=== PATIENT | male | born 1965 | race Two or more races ===

== ENCOUNTER 2025-01-24 17:38 | Inpatient (IN) | payer MEDICAID, OTHER ==
[~2025-01-24] VITALS: Ht 175.3 cm; Wt 97.5 kg
--- NOTE | 2025-01-24 17:51 | ECG ---
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
[2025-01-24] MEDS: LABETALOL HCL 20 MG/4 ML VL IV ONE ×2 (18:00→19:55)
[2025-01-24] MEDS: NITROGLYCERIN 0.4 MG SL TAB SL ONE (18:00)
--- NOTE | 2025-01-24 18:03 | ED.PDOC ---
HPI Comments This is a 59 year old male presenting to the ED with chief complaint of chest pain. Patient reports that while watching TV last night at 8pm, he begun to experience sudden onset left sided chest pain with associated radiation to his left arm, SOB, and bilateral calf pain. Patient relays that he took Ibuprofen and it resolved, however, it returned today, but is calf pain has remained resolved. Patient notes he quit smoking 4 months ago. Patient denies any syncope, fever, cough, dizziness, headache, numbness, or weakness. Chief Complaint: Chest Pain Time Seen by MD: 17:59 Reviewed Notes: Nurses Notes, Medications, Allergies Allergies: Coded Allergies: NO KNOWN ALLERGIES (Unverified , 01/24/25) Information Source: Patient Mode of Arrival: Ambulatory Severity: Moderate Timing: Hours Duration: Since onset Prehospital treatment: None Location: Chest (L) Radiation: Arm (L) Quality: Sharp Onset: At Rest Cardiac Risk Factors: Smoker PE Risk Factors: None History of: None Associated Signs and Symptoms: SOB Past Medical History PAST MEDICAL HISTORY: Denies Surgical History: Denies all surgeries Family History Family History: Reviewed,noncontributory to illness Social History Smoker: Quit Less Than 1 Year, Cigarettes Alcohol: Denies ETOH Use Drugs: Denies Drug Use Lives In: Home Constitutional: denies: chills, diaphoresis, fatigue, fever, malaise, sweats, weakness, others EENTM: denies: blurred vision, double vision, ear bleeding, ear discharge, ear drainage, ear pain, ear ringing, eye pain, eye redness, hearing loss, mouth pain, mouth swelling, nasal discharge, nose bleeding, nose congestion, nose pain, photophobia, tearing, throat pain, throat swelling, voice changes, others Respiratory: reports: shortness of breath; denies: cough, hemoptysis, orthopnea, SOB at rest, SOB with excertion, stridor, wheezing, others Cardiovascular: reports: chest pain, left arm pain; denies: dizzy spells, diaphoresis, Dyspnea on exertion, edema, irregular heart beat, lightheadedness, palpitations, PND, syncope, others Gastrointestinal: denies: abdomen distended, abdominal pain, blood streaked bowels, constipated, diarrhea, dysphagia, difficulty swallowing, hematemesis, melena, nausea, poor appetite, poor fluid intake, rectal bleeding, rectal pain, vomiting, others Genitourinary: denies: burning, dysuria, flank pain, frequency, hematuria, incontinence, penile discharge, penile sore, pain, testicle pain, testicle swelling, urgency, others Neurological: denies: dizziness, fainting, headache, left sided numbness, left sided weakness, numbness, paresthesia, pre-existing deficit, right sided numbness, right sided weakness, seizure, speech problems, tingling, tremors, weakness, others Musculoskeletal: reports: others (Bilateral calf pain); denies: back pain, gout, joint pain, joint swelling, muscle pain, muscle stiffness, neck pain Integumetry: denies: bruises, change in color, change in hair/nails, dryness, laceration, lesions, lumps, rash, wounds, others Allergic/Immunocompromised: denies: Difficulty Healing, Frequent Infections, Hives, Itching, others Hematologic/Lymphatic: denies: anemia, blood clots, easy bleeding, easy bruising, swollen glands, others Endocrine: denies: excessive hunger, excessive sweating, excessive thirst, excessive urination, flushing, intolerance to cold, intolerance to heat, unexplained weight gain, unexplained weight loss, others Psychiatric: denies: anxiety, bipolar disorder, depression, hopeless, panic disorder, schizophrenia, sleepless, suicidal, others All Other Systems: Reviewed and Negative Physical Exam General Appearance: No Apparent Distress, Normal HEENT: Normal ENT Inspection, Pharynx Normal, TMs Normal Neck: Full Range of Motion, Non-Tender, Normal, Normal Inspection Respiratory: Chest Non-Tender, Lungs Clear, No Accessory Muscle Use, No Respiratory Distress, Normal Breath Sounds Cardiovascular: No Edema, No JVD, No Murmur, No Gallop, Normal Peripheral Pulses, Tachycardia Breast Exam: Deferred Gastrointestinal: No Organomegaly, Non Tender, No Pulsatile Mass, Normal Bowel Sounds, Soft Genitalia: Deferred Pelvic: Deferred Rectal: Deferred Extremities: No calf tenderness, Normal capillary refill, Normal inspection, Normal range of motion, Non-tender, No pedal edema Musculoskeletal : Apperance: Normal Neurologic: Alert, active 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 Was a procedure done?: No CP Differential Dx Differential Diagnosis: A-fib, A-Flutter, Angina, Anxiety / Panic Attack, Atrial Dysrhythmia, Electrolyte Disorder, Heart Failure, Hyperthyroidism, Hyperventilation, Hypoxia, MAT, LA, PAC's, PSVT, Pulmonary Embolus, PVC's, Sinus Tachycardia, Torsades De Pointes, Ventricular Dysrhythmia, V-Tach, WPW Differential Diagnosis: Angina, Aortic dissection, Chest Wall Pain, Cholelithiasis, Costochondritis, Esophageal reflux/spasm, Gastritis, Myocardial Infarction, Pericarditis, Pneumonia, Pneumothorax, Pulmonary Embolus X-Ray, Labs, Meds, VS Vital Signs Date Time Temp Pulse Resp B/P (MAP) Pulse Ox O2 Delivery O2 Flow Rate FiO2 01/24/25 17:47 129 01/24/25 17:45 99.9 118 20 148/91 (110) 97 99.9 Lab Test 01/24/25 17:49 Range/Units White Blood Count 11.5 H 4.4-10.8 10^3/uL Red Blood Count 5.26 4.5-5.90 10^6/uL Hemoglobin 16.4 13.5-17.5 g/dL Hematocrit 47.3 41.0-53.0 % Mean Corpuscular Volume 90.0 80.0-100.0 fL Mean Corpuscular Hemoglobin 31.3 28.0-32.0 pg Mean Corpuscular Hemoglobin Concent 34.7 32.0-36.0 g/dL Red Cell Distribution Width 12.8 11.8-14.3 % Platelet Count 211 140-450 10^3/uL Mean Platelet Volume 8.0 6.9-10.8 fL Neutrophils (%) (Auto) 88.3 H 37.0-80.0 % Lymphocytes (%) (Auto) 7.4 L 10.0-50.0 % Monocytes (%) (Auto) 3.8 0.0-12.0 % Eosinophils (%) (Auto) 0.0 0.0-7.0 % Basophils (%) (Auto) 0.5 0.0-2.0 % Neutrophils # (Auto) 10.1 H 1.6-8.6 10 ^3/uL Lymphocytes # (Auto) 0.8 0.4-5.4 10 ^3/uL Monocytes # (Auto) 0.4 0-1.3 10 ^3/uL Eosinophils # (Auto) 0 0-0.8 10 ^3/uL Basophils # (Auto) 0.1 0-0.2 10 ^3/uL Nucleated Red Blood Cells 0.0 % D-Dimer, Quantitative 0.45 0.0-0.49 mg/L FEU Sodium Level 133 L 136-145 mmol/L Potassium Level 4.0 3.5-5.1 mmol/L Chloride Level 99 98-107 mmol/L Carbon Dioxide Level 21 20-31 mmol/L Anion Gap 13 5-15 Blood Urea Nitrogen 11 9-23 mg/dL Creatinine 1.01 0.700-1.30 mg/dL Glomerular Filtration Rate Calc 85 >90 mL/min BUN/Creatinine Ratio 10.9 10.0-20.0 Serum Glucose 191 H 74-106 mg/dL Calcium Level 9.9 8.7-10.4 mg/dL Troponin I High Sensitivity 4 </=54 ng/L Chest XR: FINDINGS: Lines and Tubes: None Lungs: Reticular nodular opacities in the right middle lung. Pleura: No effusion. No pneumothorax. Cardiomediastinal contours: Unremarkable Bones: No acute osseous abnormality. IMPRESSION: Reticular nodular opacities in the right middle lung for which atypical infection can not be excluded. Images Reviewed?: Images reviewed and evaluated by me Time of 1ST Reevaluation: 18:59 Reevaluation 1ST: Unchanged Time of 2ND Reevaluation: 19:03 Reevaluation 2ND: Resolved Patient Education/Counseling: Diagnosis, Treatment, Prognosis, Need For Follow Up Family Education/Counseling: No Family Present Comments pt was tachycardic, with chest pain. his HR slowed to 104 and his chest pain resolved. his DD is negative. cxr suggests possible infiltrate, i will cover his with antibiotic, but his chest pain brought on by tachycardia is concerning for cardiac ischemia. he will be admitted for further workups and treatments Additional Information Reviewed patient's previous visit(s): None The following tests were ordered, and results were reviewed by me: CBC, BMP, UA, Troponin, D-Dimer, Chest XR, EKG Additional information was gathered from interviewing the following independent historian: None I reviewed and agreed with the following test results read by other provider: Chest XR I discussed treatments and results with medical personnel and: Patient Comprehensive systems review obtained and negative except for what is stated in the HPI. SEPSIS Sepsis Screen Physician Orders Urinalysis (01/24/25 17:49) Electrocardigram (01/24/25 18:49) Electrocardigram (01/24/25 20:49) Chest Portable (01/24/25 17:55) Troponin-I Hs (01/24/25 18:55) Troponin-I Hs (01/24/25 20:55) Vital Signs Date Time Temp Pulse Resp B/P (MAP) Pulse Ox O2 Delivery O2 Flow Rate FiO2 01/24/25 17:47 129 01/24/25 17:45 99.9 118 20 148/91 (110) 97 99.9 Laboratory Tests Test 01/24/25 17:49 White Blood Count 11.5 10^3/uL (4.4-10.8) H Departure 1 Departure Time of Disposition: 19:02 Impression: Primary Impression: Unstable angina Additional Impressions: Tachycardia Pneumonia Qualified Codes: J18.9 - Pneumonia, unspecified organism Disposition: ADMITTED INPATIENT Admit to: Tele Condition: Serious Discharged With: Self Critical Care Note Critical Care Time?: Yes (55 min-critical care time only) Critical care comment: due to concerns for patient's condition deteriorating, the care required my highest level of attention and readiness to intervene. i assessed the patient's condition, ordered the proper tests and treatments, reassessed for response and reviewed the results. i communicated with medical personnel and formulated a plan of care. total critical care time does not include any procedures Stability Stability form required: No Heart Score Heart Score: Heart Score Response (Comments) Value History Highly Suspicious 2 EKG Repolarization Disturb 1 Age 45-64 1 Risk Factors 1 or 2 risk factors 1 Troponin Normal limit 0 Total 5 I personally scribed for MITCH BUSH MD ([email or web address]) on 01/24/25 at 18:03. Electronically submitted by Titi Frausto ([email or web address]). I personally scribed for MITCH BUSH MD ([email or web address]) on 01/24/25 at 18:44. Electronically submitted by Titi Frausto ([email or web address]). MITCH BUSH MD Jan 24, 2025 18:03
[2025-01-24 18:09] LABS: Hematocrit 47.3 % (41.0-53.0); Hemoglobin 16.4 g/dL (13.5-17.5); Mean Corpuscular Hemoglobin 31.3 pg (28.0-32.0); Mean Corpuscular Volume 90.0 fL (80.0-100.0); Nucleated Red Blood Cells % 0.0 %
[2025-01-24 18:13] LABS: Chloride 99 mmol/L (98-107); Potassium 4.0 mmol/L (3.5-5.1)
[2025-01-24 18:15] LABS: Anion Gap 13 (5-15); Calcium 9.9 mg/dL (8.7-10.4); Carbon Dioxide 21 mmol/L (20-31)
[2025-01-24 18:16] LABS: Sodium 133 mmol/L (136-145)
[2025-01-24 18:20] LABS: BUN/Creatinine Ratio 10.9 (10.0-20.0); Blood Urea Nitrogen 11 mg/dL (9-23)
[2025-01-24 18:26] LABS: Glucose 191 mg/dL (74-106)
--- NOTE | 2025-01-24 18:37 | DVH ---
EXAM: XY CHEST PORTABLE Indication: cp Technique: Single frontal view of the chest was obtained Comparison: None FINDINGS: Lines and Tubes: None Lungs: Reticular nodular opacities in the right middle lung. Pleura: No effusion. No pneumothorax. Cardiomediastinal contours: Unremarkable Bones: No acute osseous abnormality. IMPRESSION: Reticular nodular opacities in the right middle lung for which atypical infection can not be excluded .
--- NOTE | 2025-01-24 19:10 | ECG ---
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
[2025-01-24] MEDS: cefTRIAXone 1GM/50ML D5W 50 ML IV ONE (19:25)
[2025-01-24] MEDS: AZITHROMYCIN 500MG/ 250ML 250 ML IV ONE (19:58)
[2025-01-24 20:50] LABS: Urine Amorphous Crystal FEW /hpf (None Seen); Urine Protein, UAD TRACE (Negative)
--- NOTE | 2025-01-24 21:55 | DVHHP2 ---
History of Present Illness History of Present Illness Patient is 59 years old male with past medical history of GERD came with a complaint of chest pain. As per patient he had chest started yesterday around 8:00 p.m. when he was watching TV, sudden onset, left-sided, radiating to the left arm, decreased ibuprofen, no aggravating factor. Chest pain was associated with shortness of breath. On further inquiry patient also reported left calf pain which lasted about 30 minutes yesterday. Patient also reported abdominal pain, sudden onset started 1 hour before, crampy in nature, no aggravating or relieving factor. Patient denied any fever, dysuria, palpitation, acute joint pain or swelling, eating outside food. Initial lab workup revealed leukocytosis with WBC 11.5, D-dimer 0.45. sodium 133, blood sugar 91, urinalysis negative for UTI. EKG sinus tachycardia. UDS negative, urinalysis negative for UTI. Chest x-ray- Reticular nodular opacities in the right middle lung for which atypical infection can not be excluded. CT scan of the abdomen and pelvis revealed-Small ground-glass nodule in the right upper lobe measuring 1 cm. This could be infectious or inflammatory. Small hiatal hernia. No free intraperitoneal air or fluid collection. No bowel obstruction. Circumferential wall thickening of a long segment of ascending and transverse colon which could be infectious or inflammatory colitis. Mild hepatomegaly with mild hepatic steatosis. Past Medical History GERD Past Surgical History Left knee surgery Family History Mom and dad both had hypertension Past Social History Ex-smoker, with 4 month before, 20 pack-year Review of Systems Allergies: Coded Allergies: NO KNOWN ALLERGIES (Unverified , 01/24/25) Medications Current Medications Medications Dose Ordered Sig/Chris Route Start Time Stop Time Status Last Admin Dose Admin Sodium Chloride 1,000 ml @ 120 mls/hr [id number] IV 01/24/25 21:45 Exam Vital Signs Vital Signs Date Time Temp Pulse Resp B/P (MAP) Pulse Ox O2 Delivery O2 Flow Rate FiO2 01/24/25 21:00 102 138/91 01/24/25 20:00 98.5 16 93 98.5 01/24/25 19:30 Nasal Cannula* 2 28 Exam General examination- ray, alert, oriented HEENT- PEERLA, no acute nasal discharge Cardiovascular- S1-S2 audible, rate and rhythm regular, no murmur Respiratory- CTAB, no wheeze or rhonchi Gastrointestinal-abdominal tenderness+, bowel sound+. Nondistended Musculoskeletal-no acute joint swelling or tenderness or redness Lower extremity- no leg edema Neurological- cranial nerves intact, no acute dysarthria or dysphagia Psychiatry- denies depression or SI or HI Skin- no acute rash or purpura Labs/Xrays Labs Test 01/24/25 20:15 01/24/25 19:49 01/24/25 19:01 01/24/25 17:49 Range/Units Urine Color Colorless Yellow Urine Clarity Ex.turbid Clear Urine pH 5.5 5.0-9.0 Urine Specific [place] 1.027 1.001-1.035 Urine Protein Trace H Negative Urine Ketones Negative Negative Urine Blood Negative Negative /uL Urine Nitrite Negative Negative Urine Bilirubin Negative Negative Urine Urobilinogen Normal Negative mg/dL Urine Leukocyte Esterase Negative Negative /uL Urine RBC 2 0 - 3 /hpf Urine Microscopic WBC 1 0-3 /HPF Urine Squamous Epithelial Cells None seen <5 /hpf Urine Amorphous Crystals Few None Seen /hpf Urine Bacteria None seen None Seen /hpf Urine Mucus Few None Seen Urine Glucose 1+ H Normal mg/dL Troponin I High Sensitivity 5 </=54 ng/L White Blood Count 11.5 H 4.4-10.8 10^3/uL Red Blood Count 5.26 4.5-5.90 10^6/uL Hemoglobin 16.4 13.5-17.5 g/dL Hematocrit 47.3 41.0-53.0 % Mean Corpuscular Volume 90.0 80.0-100.0 fL Mean Corpuscular Hemoglobin 31.3 28.0-32.0 pg Mean Corpuscular Hemoglobin Concent 34.7 32.0-36.0 g/dL Red Cell Distribution Width 12.8 11.8-14.3 % Platelet Count 211 140-450 10^3/uL Mean Platelet Volume 8.0 6.9-10.8 fL Neutrophils (%) (Auto) 88.3 H 37.0-80.0 % Lymphocytes (%) (Auto) 7.4 L 10.0-50.0 % Monocytes (%) (Auto) 3.8 0.0-12.0 % Eosinophils (%) (Auto) 0.0 0.0-7.0 % Basophils (%) (Auto) 0.5 0.0-2.0 % Neutrophils # (Auto) 10.1 H 1.6-8.6 10 ^3/uL Lymphocytes # (Auto) 0.8 0.4-5.4 10 ^3/uL Monocytes # (Auto) 0.4 0-1.3 10 ^3/uL Eosinophils # (Auto) 0 0-0.8 10 ^3/uL Basophils # (Auto) 0.1 0-0.2 10 ^3/uL Nucleated Red Blood Cells 0.0 % D-Dimer, Quantitative 0.45 0.0-0.49 mg/L FEU Sodium Level 133 L 136-145 mmol/L Potassium Level 4.0 3.5-5.1 mmol/L Chloride Level 99 98-107 mmol/L Carbon Dioxide Level 21 20-31 mmol/L Anion Gap 13 5-15 Blood Urea Nitrogen 11 9-23 mg/dL Creatinine 1.01 0.700-1.30 mg/dL Glomerular Filtration Rate Calc 85 >90 mL/min BUN/Creatinine Ratio 10.9 10.0-20.0 Serum Glucose 191 H 74-106 mg/dL Calcium Level 9.9 8.7-10.4 mg/dL Assessment/Plan Assessment/Plan Assessment and plan # Acute chest pain, out acute coronary syndrome -troponin I negative, EKG sinus tachycardia -edema with a normal limit -pending echo 2D # Acute colitis -CT abdomen and pelvis revealed-Circumferential wall thickening of a long segment of ascending and transverse colon which could be infectious or inflammatory colitis -continue ceftriaxone metronidazole as prescribed -continue normal saline iv 120 mL/hour # SIRS -continue IV fluid as prescribed Continue current antibiotic # GERD Continue pantoprazole 40 mg IV daily # Right lung nodule -CT scan revealed-Small ground-glass nodule in the right upper lobe measuring 1 cm. -follow up outpatient with the primary care physician for further evaluation and care # Hiatus hernia # hepatomegaly with a hepatic steatosis Goals of care, Code status ; discussed with >15 minutes PUD prophylaxis: Pantoprazole DVT prophylaxis: Lovenox Plan discussed with Dr. Au , nursing staff, Total time spent on patient evaluation, chart review, assessment and plan, discussion discussion >35 minutes Plan discussed with: Patient, Other (RN) My Orders Orders - HOOD MORA RESIDENT Procedure Category Date Status Time Hepatic Panel LAB 01/24/25 In Process 21:33 Lipase LAB 01/24/25 In Process 21:33 Magnesium LAB 01/24/25 In Process 21:33 Thyroid Stimulating LAB 01/24/25 In Process Hormone 21:33 Blood Alcohol LAB 01/24/25 In Process 21:34 Chst Ab Pel Wo Con-No CT 01/24/25 Taken Iv/Oral 21:29 Admit ADMIT 01/24/25 Transmitted 21:35 Code Status CODE 01/24/25 Transmitted 21:35 Sodium Chloride 0.9% PHA 01/24/25 In Process 21:45 Complete Blood Count LAB 01/25/25 Verified 04:00 Comprehensive LAB 01/25/25 Verified Metabolic Panel 04:00 Npo (Nothing By DIET 01/25/25 Transmitted Mouth) Diet Breakfast Echo 2d Mode Cardiac US 01/24/25 Logged DOP 21:35 Oxygen By Nasal RT 01/24/25 Transmitted Cannula 21:35 Notify Of Changes MARY ANN 01/24/25 In Process From Base 21:35 Bed And Breakfast Innkeeper For MARY ANN 01/24/25 In Process 24 Hours 21:35 Date of Service: Jan 24, 2025 Billing Provider: SAAD AU MD Common Visit Codes: 40098-[id number] INP/OBS CARE (HIGH) Secondary Visit Codes: 53812-[id number] CARE PLAN 30 MINUTES HOOD MORA RESIDENT Jan 24, 2025 21:55
[2025-01-24 21:58] LABS: Alanine Aminotransferase 39 U/L (7-40); Albumin 4.6 g/dL (3.2-4.8); Alkaline Phosphatase 74 U/L (46-116); Bilirubin, Total 0.5 mg/dL (0.2-1.0); Magnesium 1.7 mg/dL (1.6-2.6); Total Protein 7.4 g/dL (5.7-8.2)
[2025-01-24] MEDS: PANTOPRAZOLE 40 MG/10 ML VIAL INJ IV ONE (22:03)
[2025-01-24] MEDS: SODIUM CHLORIDE 0.9% 1,000 ML IV SCH (22:04)
[2025-01-24 22:05] LABS: Amphetamine Screen, Urine Neg (NEGATIVE); Barbiturate Scree,Urine Neg (NEGATIVE); Benzodiazephine Screen, Urine Neg (NEGATIVE); Cannabinoid Screen, Urine Neg (NEGATIVE); Cocaine Screen, Urine Neg (NEGATIVE); Opiate Scree,Urine Neg (NEGATIVE); Phencyclidine Screen, Urine Neg (NEGATIVE)
[2025-01-24 22:05] LABS: Bilirubin, Direct < 0.1 mg/dL (<0.3)
[2025-01-24 22:27] LABS: Lipase 40 U/L (12-53)
[2025-01-24] MEDS ORDERED: ONDANSETRON HCL 4 MG/2 ML VIAL IV PRN (22:30)
[2025-01-24] MEDS: ONDANSETRON HCL 4 MG/2 ML VIAL IM ONE (22:54)
[2025-01-24 23:06] VITALS: BP 124/83; PULSE 103; RESP 16; RESP 18; TEMP 100.6; O2SAT 95
[2025-01-24 23:30] VITALS: BP 124/83; PULSE 104; RESP 19; TEMP 100.6; O2SAT 93
[2025-01-25] VITALS (8 sets, daily range): BP systolic 125–150; BP diastolic 79–93; PULSE 79–101; RESP 18–19; TEMP 97.5–101.3; O2SAT 94–98
--- NOTE | 2025-01-25 | DVH ---
CLINICAL HISTORY: perforation of gut, SOB TECHNIQUE: CT of the chest, abdomen and pelvis was performed without IV contrast. This exam was perfo rmed according to our departmental dose optimization program. Up-to-date CT equipment and radiation d ose reduction techniques are utilized as appropriate. CTDI: 18.5 DLP: 1381.82 COMPARISON: None FINDINGS: CHEST FINDINGS: Lower Neck: Unremarkable Axilla, Mediastinum and Carol: Small hiatal hernia. There is no mediastinal or axillary lymphadenopath y. Limited evaluation of the carol in the absence of intravenous contrast. Heart and Great Vessels: Normal-sized heart without pericardial effusion. Moderate calcification in t he left anterior descending coronary artery. The central pulmonary arteries normal caliber. Airway, Lungs and Pleura: Trachea and central airways are patent. Linear bibasilar scarring or atelec tasis. Small ground-glass nodule in the right upper lobe measuring 9 mm on series 3, image 19. Chest Wall and Osseous Structures: Mild multilevel thoracic spondylosis. No destructive osseous lesio n. Abdomen and Pelvis Findings: Liver and Biliary system: Mild hepatomegaly measuring 20 cm craniocaudal. There is mild hepatic stea tosis. Otherwise unremarkable. Spleen: Unremarkable. Adrenal Glands and Kidneys: Unremarkable. Pancreas and Retroperitoneum: Unremarkable. Aorta and Major Vessels: Aortoiliac vessels are normal in caliber containing mild calcified atheroscl erotic plaque. Bowel, Mesentery and Peritoneal space: Small and large bowel loops are normal in caliber. Normal appe ndix. There is no free air or fluid collection. There is mild circumferential wall thickening of a lo ng segment of ascending and transverse colon. Pelvis: Dystrophic calcifications in the prostate gland. Urinary bladder is minimally distended. The re is no pelvic lymphadenopathy. Abdominal wall and Osseous Structures: Small fat containing bilateral inguinal hernias. Multilevel francisco mbar spondylosis. No destructive osseous lesion. IMPRESSION: Chest: Small ground-glass nodule in the right upper lobe measuring 1 cm. This could be infectious or inflamm atory. If clinically indicated, follow-up CT chest could be in 6-12 months to re-evaluate this findin g if there are risk factors for pulmonary malignancy. Moderate calcified plaque in the left anterior descending coronary artery. Small hiatal hernia. Abdomen/pelvis: No free intraperitoneal air or fluid collection. No bowel obstruction. Circumferential wall thickening of a long segment of ascending and transverse colon which could be in fectious or inflammatory colitis. Mild hepatomegaly with mild hepatic steatosis.
[2025-01-25] MEDS: cefTRIAXone 1GM/50ML D5W 50 ML IV ONE (00:38)
[2025-01-25] MEDS: ENOXAPARIN SOD 40 MG/0.4 ML SYRINGE SC ONE (00:39)
[2025-01-25 07:35] LABS: Hematocrit 44.2 % (41.0-53.0); Hemoglobin 15.3 g/dL (13.5-17.5); Mean Corpuscular Hemoglobin 31.4 pg (28.0-32.0); Mean Corpuscular Volume 90.5 fL (80.0-100.0); Nucleated Red Blood Cells % 0.0 %
[2025-01-25 07:51] LABS: Alanine Aminotransferase 31 U/L (7-40); Albumin 4.1 g/dL (3.2-4.8); Alkaline Phosphatase 64 U/L (46-116); Anion Gap 14 (5-15); BUN/Creatinine Ratio 9.2 (10.0-20.0); Blood Urea Nitrogen 10 mg/dL (9-23); Calcium 9.5 mg/dL (8.7-10.4); Carbon Dioxide 21 mmol/L (20-31); Chloride 99 mmol/L (98-107); Total Protein 6.8 g/dL (5.7-8.2)
[2025-01-25 07:52] LABS: Bilirubin, Total 0.5 mg/dL (0.2-1.0); Glucose 145 mg/dL (74-106); Potassium 3.5 mmol/L (3.5-5.1); Sodium 134 mmol/L (136-145)
[2025-01-25] MEDS ORDERED: FAMOTIDINE (10MG/ML) 2ML VL IV SCH (10:00)
[2025-01-25] MEDS: PANTOPRAZOLE 40 MG/10 ML VIAL INJ IV SCH (10:19)
[2025-01-25] MEDS: ACETAMINOPHEN 325 MG TAB PO PRN (10:20)
--- NOTE | 2025-01-25 14:44 | DVHINCON2 ---
Date Seen: Jan 25, 2025 Referring Physician MD Marquez Reason for Consultation Chest pain History of Present Illness This is a 59-year-old male patient who presents to the emergency room with chief complaint of chest pain for two days prior to emergency room arrival. The patient describes the pain as unprovoked, intermittent, "sore" in nature, left- sided with radiation down his left arm and down to his left calf. He denies any associated symptoms. He does report aggravation of chest pain with deep inhalation. Initial twelve lead electrocardiogram reveals sinus tachycardia with Q-waves seen in inferior leads. Troponin levels have been negative. Significant past medical history includes tobacco use, alcohol use, and obesity. The patient also reports having a stress test done in April 2024 which was deemed to be normal. He reports annual stress tests for work compliance. 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 Past Medical History Past medical history reviewed. No other significant than mentioned above. Past Surgical History Denies any previous surgeries Family History: Diabetes mellitus G8 MOTHER G8 FATHER Family History Family history reviewed. Social History Patient admits to drinking approximately three beers per day Patient has a 10 pack-year history, quit smoking approximately four months ago Denies any illicit drug use Allergies: Coded Allergies: NO KNOWN ALLERGIES (Unverified , 01/24/25) Home Meds Denies taking any prescribed medications Current Medications Current Medications Medications (Trade) Dose Ordered Sig/Chris Route PRN Reason Start Time Stop Time Status Last Admin Sodium Chloride 1,000 ml @ 120 mls/hr Q8H20M IV 01/24/25 21:45 01/25/25 13:14 Ondansetron HCl (Zofran) 4 mg Q6HPRN PRN IV NAUSEA / VOMITING 01/24/25 22:30 Ceftriaxone Sodium 50 ml @ 100 mls/hr DAILY@09 IV 01/26/25 09:00 Metronidazole 100 ml @ 100 mls/hr Q8HR IV 01/25/25 06:00 01/25/25 13:21 Enoxaparin Sodium (Lovenox) 40 mg DAILY SC 01/26/25 10:00 Famotidine (Pepcid Injection) 20 mg Q12HR IV 01/25/25 10:00 01/25/25 08:07 DC Pantoprazole Sodium (Protonix) 40 mg DAILY IV 01/25/25 10:00 01/25/25 10:19 Acetaminophen (Tylenol Tablet) 650 mg Q4HP PRN PO PAIN SCALE 1-3 OR TEMP>100.4 01/25/25 09:15 01/25/25 10:20 Review of Systems Constitutional: No symptom reported Ears, Nose, & Throat: No symptom reported Eyes: No symptom reported Neurological: No symptoms reported Pulmonary/Respiratory: No symptoms reported Cardiovascular: Chest pain Gastrointestinal: No symptom reported Genitourinary: No symptom reported Musculoskeletal: Left calf pain Skin: No symptom reported Psychiatric: No symptom reported Endocrine: No symptom reported Hematologic/Lymphatic: No symptom reported Vital Signs Vital Signs Date Time Temp Pulse Resp B/P (MAP) Pulse Ox O2 Delivery O2 Flow Rate FiO2 01/25/25 13:14 97.4 01/25/25 09:00 95 18 144/93 (110) 96 01/25/25 08:00 Room Air* 0 21 Physical Exam General Appearance: Cooperative. Well-developed. Well-nourished. No acute distress. Pulmonary/Respiratory: Diminished bilateral lower lobes. Cardiovascular/Chest: Regular rate and rhythm. Peripheral Pulses: 2+ Radial (R). 2+ Radial (L). 2+ Pedal (R). 2+ Pedal (L) Abdominal Exam: Normal bowel sounds. Ankle Exam: Negative ankle edema Lower extremities: Negative lower extremity edema Neuro/Mental Status: A/OX4, coherent. Thoughts/Psych: Normal thought pattern. Appropriate mood and affect. Good judgment and insight. Appearance: No acute distress. Skin Exam: Normal inspection. Normal color. Warm and dry. Labs/Diagnostic Data Labs Test 01/25/25 06:16 01/24/25 20:15 01/24/25 19:49 01/24/25 19:01 Range/Units White Blood Count 9.9 4.4-10.8 10^3/uL Red Blood Count 4.88 4.5-5.90 10^6/uL Hemoglobin 15.3 13.5-17.5 g/dL Hematocrit 44.2 41.0-53.0 % Mean Corpuscular Volume 90.5 80.0-100.0 fL Mean Corpuscular Hemoglobin 31.4 28.0-32.0 pg Mean Corpuscular Hemoglobin Concent 34.7 32.0-36.0 g/dL Red Cell Distribution Width 12.9 11.8-14.3 % Platelet Count 187 140-450 10^3/uL Mean Platelet Volume 8.4 6.9-10.8 fL Neutrophils (%) (Auto) 86.6 H 37.0-80.0 % Lymphocytes (%) (Auto) 8.8 L 10.0-50.0 % Monocytes (%) (Auto) 4.1 0.0-12.0 % Eosinophils (%) (Auto) 0.0 0.0-7.0 % Basophils (%) (Auto) 0.5 0.0-2.0 % Neutrophils # (Auto) 8.6 1.6-8.6 10 ^3/uL Lymphocytes # (Auto) 0.9 0.4-5.4 10 ^3/uL Monocytes # (Auto) 0.4 0-1.3 10 ^3/uL Eosinophils # (Auto) 0 0-0.8 10 ^3/uL Basophils # (Auto) 0 0-0.2 10 ^3/uL Nucleated Red Blood Cells 0.0 % Sodium Level 134 L 136-145 mmol/L Potassium Level 3.5 3.5-5.1 mmol/L Chloride Level 99 98-107 mmol/L Carbon Dioxide Level 21 20-31 mmol/L Anion Gap 14 5-15 Blood Urea Nitrogen 10 9-23 mg/dL Creatinine 1.09 0.700-1.30 mg/dL Glomerular Filtration Rate Calc 78 >90 mL/min BUN/Creatinine Ratio 9.2 L 10.0-20.0 Serum Glucose 145 H 74-106 mg/dL Hemoglobin A1c 7.3 H <5.7 % A1C Calcium Level 9.5 8.7-10.4 mg/dL Total Bilirubin 0.5 0.2-1.0 mg/dL Aspartate Amino Transferase (AST) 24 13-40 U/L Alanine Aminotransferase (ALT) 31 7-40 U/L Alkaline Phosphatase 64 46-116 U/L B-Type Natriuretic Peptide 30.26 0-100 pg/mL Total Protein 6.8 5.7-8.2 g/dL Albumin 4.1 3.2-4.8 g/dL Vitamin B12 Level 235 211-911 pg/mL Vitamin D 25-Hydroxy 19.4 L 30.0-100 ng/mL Urine Color Colorless Yellow Urine Clarity Ex.turbid Clear Urine pH 5.5 5.0-9.0 Urine Specific [place] 1.027 1.001-1.035 Urine Protein Trace H Negative Urine Ketones Negative Negative Urine Blood Negative Negative /uL Urine Nitrite Negative Negative Urine Bilirubin Negative Negative Urine Urobilinogen Normal Negative mg/dL Urine Leukocyte Esterase Negative Negative /uL Urine RBC 2 0 - 3 /hpf Urine Microscopic WBC 1 0-3 /HPF Urine Squamous Epithelial Cells None seen <5 /hpf Urine Amorphous Crystals Few None Seen /hpf Urine Bacteria None seen None Seen /hpf Urine Mucus Few None Seen Urine Glucose 1+ H Normal mg/dL Urine Opiates Screen Neg NEGATIVE Urine Fentanyl Screen Neg NEGATIVE Urine Barbiturates Screen Neg NEGATIVE Urine Phencyclidine Screen Neg NEGATIVE Urine Amphetamines Screen Neg NEGATIVE Urine Benzodiazepines Screen Neg NEGATIVE Urine Cocaine Screen Neg NEGATIVE Urine Cannabinoids Screen Neg NEGATIVE Magnesium Level 1.7 1.6-2.6 mg/dL Direct Bilirubin < 0.1 <0.3 mg/dL Lipase 40 12-53 U/L Thyroid Stimulating Hormone (TSH) 1.42 0.55-4.78 uIU/mL Acetaminophen Level < 2.0 L 10.0-20.0 UG/ML Plasma/Serum Blood Alcohol < 3.0 <10 mg/dL Troponin I High Sensitivity 5 </=54 ng/L Test 01/24/25 17:49 Range/Units D-Dimer, Quantitative 0.45 0.0-0.49 mg/L FEU Assessment Chest pain Rule out structural heart disease Pneumonia Right lung nodule Type 2 diabetes mellitus, newly diagnosed (Hgb A1c 7.3%) Alcohol use Tobacco use Plan/Recommendation We will continue with the following plan/recommendations (Dr. Werner): Case discussed with . We will proceed with obtaining a transthoracic echocardiogram to evaluate cardiac function. Troponin levels have been negative, twelve lead electrocardiogram shows no significant ST segment changes, HEART score (2 points) is low, doubt ACS. The patient also mentions a recent stress test that he did for work in April 2024 which he states was "normal". At this time, the patient is currently being treated for underlying pneumonia. Patient also noted to have episodes of pyrexia earlier today. The patient has had some sinus tachycardia in the setting of infection. We will recommend for outpatient cardiology workup if deemed necessary. In the setting of an unrema rkable transthoracic echocardiogram, there is no further inpatient cardiac workup indicated at this time. Thank you for allowing us to care for this patient. Please call with any questions or concerns. Critical care time spent: 44 minutes This medical document was created using an electronic medical record system with voice recognition software and computerized dictation system. Although this document has been carefully reviewed, there might still be some phonetic and typographical errors. Occasional wrong-word or ``sound-alike substitutions may have occurred due to the inherent limitations of voice recognition software. These areas are purely typographical due to imperfections of the software programs and do not reflect any compromise in the patient's medical care. Please read the chart carefully and recognize, using context, where these substitutions have occurred. Plan discussed with: Patient NYHA Physical activity limitations: NA Date of Service: Jan 25, 2025 Billing Provider: MANUEL VILLALOBOS Cardiology Common Codes: [id number] INP/OBS CARE (High) Cardiology Consultation Codes: [id number] CONSULT <45MIN MANUEL VILLALOBOS Jan 25, 2025 14:44
[2025-01-25 15:52] LABS: HDL Cholesterol 45 mg/dL (40-59)
[2025-01-25 15:55] LABS: Cholesterol 204 mg/dL (< 200); Triglycerides 298 mg/dL (< 150)
--- NOTE | 2025-01-25 17:52 | DVHPN2 ---
Subjective Assuming the care of the patient from today onwards who was under the care of the hospitalist team. Patient is here for chest pain found to have right-sided pneumonia as well as ascending and transverse colon colitis. Patient also spiked temperature earlier. 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 Medications Current Medications Medications Dose Ordered Sig/Chris Route Start Time Stop Time Status Last Admin Dose Admin Sodium Chloride 1,000 ml @ 120 mls/hr Q8H20M IV 01/24/25 21:45 01/25/25 13:14 120 MLS/HR Ondansetron HCl 4 mg Q6HPRN PRN IV 01/24/25 22:30 Ceftriaxone Sodium 50 ml @ 100 mls/hr DAILY@09 IV 01/26/25 09:00 Metronidazole 100 ml @ 100 mls/hr Q8HR IV 01/25/25 06:00 01/25/25 13:21 100 MLS/HR Enoxaparin Sodium 40 mg DAILY SC 01/26/25 10:00 Pantoprazole Sodium 40 mg DAILY IV 01/25/25 10:00 01/25/25 10:19 40 MG Acetaminophen 650 mg Q4HP PRN PO 01/25/25 09:15 01/25/25 10:20 650 MG Laboratory Results Laboratory Tests 01/25/25 06:16 Chemistry Test 01/24/25 19:49 01/25/25 06:16 Albumin 4.6 g/dL (3.2-4.8) 4.1 g/dL (3.2-4.8) Magnesium Level 1.7 mg/dL (1.6-2.6) Total Protein 7.4 g/dL (5.7-8.2) 6.8 g/dL (5.7-8.2) Calcium Level 9.5 mg/dL (8.7-10.4) Lipid panel Test 01/24/25 19:49 01/25/25 06:16 Lipase 40 U/L (12-53) Cholesterol Level 204 mg/dL (< 200) H HDL Cholesterol 45 mg/dL (40-59) Triglycerides Level 298 mg/dL (< 150) H Cardiac Markers Test 01/25/25 06:16 B-Type Natriuretic Peptide 30.26 pg/mL (0-100) LFT Test 01/24/25 19:49 01/25/25 06:16 Alanine Aminotransferase (ALT) 39 U/L (7-40) 31 U/L (7-40) Alkaline Phosphatase 74 U/L (46-116) 64 U/L (46-116) Aspartate Amino Transferase (AST) 36 U/L (13-40) 24 U/L (13-40) Direct Bilirubin < 0.1 mg/dL (<0.3) Total Bilirubin 0.5 mg/dL (0.2-1.0) 0.5 mg/dL (0.2-1.0) HgA1c, TSH Test 01/24/25 19:49 01/25/25 06:16 Thyroid Stimulating Hormone (TSH) 1.42 uIU/mL (0.55-4.78) Hemoglobin A1c 7.3 % A1C (<5.7) H Urinalysis Test 01/24/25 20:15 Urine Color Colorless (Yellow) Urine Clarity Ex.turbid (Clear) Urine pH 5.5 (5.0-9.0) Urine Specific [place] 1.027 (1.001-1.035) Urine Protein Trace (Negative) H Urine Ketones Negative (Negative) Urine Blood Negative /uL (Negative) Urine Nitrite Negative (Negative) Urine Bilirubin Negative (Negative) Urine Urobilinogen Normal mg/dL (Negative) Urine Leukocyte Esterase Negative /uL (Negative) Urine RBC 2 /hpf (0 - 3) Urine Microscopic WBC 1 /HPF (0-3) Urine Squamous Epithelial Cells None seen /hpf (<5) Urine Amorphous Crystals Few /hpf (None Seen) Urine Bacteria None seen /hpf (None Seen) Urine Mucus Few (None Seen) Urine Glucose 1+ mg/dL (Normal) H Assessment/Plan Assessment/Plan 59-year-old male with a no significant past medical history initially presented to the hospital with a chest pain and left arm pain found to have 1. Chest pain rule out DE 2. Reticular opacities/Right-sided pneumonia rule out atypical infection 3. Ascending and transverse colon colitis 4. Right lung nodule 5. New onset of diabetes mellitus type 2 with a hemoglobin A1c 7.3 6. Chronic alcoholism 7. Chronic tobacco use disorder -IV antibiotics 2D echo cardiology consultation. -pulmonary consultation . Plan discussed with: Patient My Orders Orders - YOLANDA DENNY MD Procedure Category Date Status Time * Cardiology Consult CONS 01/25/25 Transmitted 13:07 Cardiac DIET 01/25/25 Transmitted Diet-2gna,Lofat,Lochol Dinner *Consult CONS 01/25/25 Transmitted / 17:47 Date of Service: Jan 25, 2025 Billing Provider: YOLANDA DENNY MD Common Visit Codes: [id number] INP/OBS CARE(MOD) YOLANDA DENNY MD Jan 25, 2025 17:52
--- NOTE | 2025-01-25 22:15 | DVHINCON2 ---
Date of service: Jan 25, [address] Zayas History of Present Illness Patient was admitted for further care and pulmonary consultation is requested for evaluation and management of acute hypoxic respiratory failure Review of Systems: 14-point review of systems negative unless otherwise noted above. Past Medical History: Past Surgical History: Medications: Reviewed. Allergies: No known drug allergies. Family History: No family history of premature CAD. No family history of lung disorders. Social History: Nonsmoker. No alcohol or illicit drug use. Family History: Diabetes mellitus G8 MOTHER G8 FATHER Allergies: Coded Allergies: NO KNOWN ALLERGIES (Unverified , 01/24/25) Current Medications Current Medications Medications (Trade) Dose Ordered Sig/Chris Route PRN Reason Start Time Stop Time Status Last Admin Ondansetron HCl (Zofran) 4 mg Q6HPRN PRN IV NAUSEA / VOMITING 01/24/25 22:30 Ceftriaxone Sodium 50 ml @ 100 mls/hr DAILY@09 IV 01/26/25 09:00 Metronidazole 100 ml @ 100 mls/hr Q8HR IV 01/25/25 06:00 01/25/25 22:03 Enoxaparin Sodium (Lovenox) 40 mg DAILY SC 01/26/25 10:00 Famotidine (Pepcid Injection) 20 mg Q12HR IV 01/25/25 10:00 01/25/25 08:07 DC Pantoprazole Sodium (Protonix) 40 mg DAILY IV 01/25/25 10:00 01/25/25 10:19 Acetaminophen (Tylenol Tablet) 650 mg Q4HP PRN PO PAIN SCALE 1-3 OR TEMP>100.4 01/25/25 09:15 01/25/25 10:20 Vital Signs Vital Signs Date Time Temp Pulse Resp B/P (MAP) Pulse Ox O2 Delivery O2 Flow Rate FiO2 01/25/25 16:48 99.1 82 18 138/86 (103) 98 99.1 01/25/25 08:00 Room Air* 0 21 Physical Exam Gen.: Patient lying in bed in no apparent distress. Breathing on room air. Head: Normocephalic, atraumatic. Eyes: EOMI/PERRLA. Ears: Normal hearing. Normal anatomy. Neck/trachea: Trachea midline, supple. Nose: Normal external anatomy. Mouth: Moist mucous membranes. Chest: Decreased air entry bilaterally. No wheezing or rhonchi. Cardiovascular: Positive S1, positive S2. Regular rate and rhythm. Abdomen: Positive bowel sounds in all 4 quadrants. Soft, non-tender, non- distended. : Deferred. Rectal: Deferred. Skin: Warm, dry. Intact. Extremities: 2+ radial pulses bilaterally. No lower extremity edema. Neuro: Awake, alert, oriented x3. No gross motor or sensory deficits. Cranial nerves II through XII intact. Gait not assessed. Labs/Diagnostic Data Labs Test 01/25/25 06:16 01/24/25 20:15 01/24/25 19:49 01/24/25 19:01 Range/Units White Blood Count 9.9 4.4-10.8 10^3/uL Red Blood Count 4.88 4.5-5.90 10^6/uL Hemoglobin 15.3 13.5-17.5 g/dL Hematocrit 44.2 41.0-53.0 % Mean Corpuscular Volume 90.5 80.0-100.0 fL Mean Corpuscular Hemoglobin 31.4 28.0-32.0 pg Mean Corpuscular Hemoglobin Concent 34.7 32.0-36.0 g/dL Red Cell Distribution Width 12.9 11.8-14.3 % Platelet Count 187 140-450 10^3/uL Mean Platelet Volume 8.4 6.9-10.8 fL Neutrophils (%) (Auto) 86.6 H 37.0-80.0 % Lymphocytes (%) (Auto) 8.8 L 10.0-50.0 % Monocytes (%) (Auto) 4.1 0.0-12.0 % Eosinophils (%) (Auto) 0.0 0.0-7.0 % Basophils (%) (Auto) 0.5 0.0-2.0 % Neutrophils # (Auto) 8.6 1.6-8.6 10 ^3/uL Lymphocytes # (Auto) 0.9 0.4-5.4 10 ^3/uL Monocytes # (Auto) 0.4 0-1.3 10 ^3/uL Eosinophils # (Auto) 0 0-0.8 10 ^3/uL Basophils # (Auto) 0 0-0.2 10 ^3/uL Nucleated Red Blood Cells 0.0 % Sodium Level 134 L 136-145 mmol/L Potassium Level 3.5 3.5-5.1 mmol/L Chloride Level 99 98-107 mmol/L Carbon Dioxide Level 21 20-31 mmol/L Anion Gap 14 5-15 Blood Urea Nitrogen 10 9-23 mg/dL Creatinine 1.09 0.700-1.30 mg/dL Glomerular Filtration Rate Calc 78 >90 mL/min BUN/Creatinine Ratio 9.2 L 10.0-20.0 Serum Glucose 145 H 74-106 mg/dL Hemoglobin A1c 7.3 H <5.7 % A1C Calcium Level 9.5 8.7-10.4 mg/dL Total Bilirubin 0.5 0.2-1.0 mg/dL Aspartate Amino Transferase (AST) 24 13-40 U/L Alanine Aminotransferase (ALT) 31 7-40 U/L Alkaline Phosphatase 64 46-116 U/L B-Type Natriuretic Peptide 30.26 0-100 pg/mL Total Protein 6.8 5.7-8.2 g/dL Albumin 4.1 3.2-4.8 g/dL Triglycerides Level 298 H < 150 mg/dL Cholesterol Level 204 H < 200 mg/dL LDL Cholesterol 120 H < 100 mg/dL HDL Cholesterol 45 40-59 mg/dL Vitamin B12 Level 235 211-911 pg/mL Vitamin D 25-Hydroxy 19.4 L 30.0-100 ng/mL Urine Color Colorless Yellow Urine Clarity Ex.turbid Clear Urine pH 5.5 5.0-9.0 Urine Specific [place] 1.027 1.001-1.035 Urine Protein Trace H Negative Urine Ketones Negative Negative Urine Blood Negative Negative /uL Urine Nitrite Negative Negative Urine Bilirubin Negative Negative Urine Urobilinogen Normal Negative mg/dL Urine Leukocyte Esterase Negative Negative /uL Urine RBC 2 0 - 3 /hpf Urine Microscopic WBC 1 0-3 /HPF Urine Squamous Epithelial Cells None seen <5 /hpf Urine Amorphous Crystals Few None Seen /hpf Urine Bacteria None seen None Seen /hpf Urine Mucus Few None Seen Urine Glucose 1+ H Normal mg/dL Urine Opiates Screen Neg NEGATIVE Urine Fentanyl Screen Neg NEGATIVE Urine Barbiturates Screen Neg NEGATIVE Urine Phencyclidine Screen Neg NEGATIVE Urine Amphetamines Screen Neg NEGATIVE Urine Benzodiazepines Screen Neg NEGATIVE Urine Cocaine Screen Neg NEGATIVE Urine Cannabinoids Screen Neg NEGATIVE Magnesium Level 1.7 1.6-2.6 mg/dL Direct Bilirubin < 0.1 <0.3 mg/dL Lipase 40 12-53 U/L Thyroid Stimulating Hormone (TSH) 1.42 0.55-4.78 uIU/mL Acetaminophen Level < 2.0 L 10.0-20.0 UG/ML Plasma/Serum Blood Alcohol < 3.0 <10 mg/dL Troponin I High Sensitivity 5 </=54 ng/L Test 01/24/25 17:49 Range/Units D-Dimer, Quantitative 0.45 0.0-0.49 mg/L FEU Assessment Impression: Pneumonia GGO on imaging Atelectasis GGO and pulmonary nodule on imaging Pulmonary nodule in Right upper lobe Obesity BMI 31.7 Plan: CT chest report and images reviewed. Linear bibasilar scarring or atelectasis. Small ground-glass nodule in the right upper lobe measuring 9 mm Supplemental oxygen PRN Titrate to keep O2 sats above 92%. CT scan revealed small ground-glass nodule in the right upper lobe measuring [address] chest without contrast, vs PET CT as outpatient in 3 months per Fleischner criteria. Continue bronchodilators. Continue antibiotics Incentive spirometry Continue diuresis Diurese to euvolemia Monitor renal function. Monitor electrolytes. Supplement as necessary. Monitor ins and outs. Diet and lifestyle modifications for weight reduction given obesity. DVT prophylaxis. Prognosis: Guarded/Poor given patient's multiple co-morbidities. Rest of plan per hospitalist and other consultants. Thank you Dr. Zayas for allowing me to participate in this patient's care. Further recommendations will depend on the patient's clinical course. Please do not hesitate to contact me if you have any questions or concerns. This medical document was created using an electronic medical record system with [employer] computerized dictation system. Although these documentations are being c arefully reviewed, there may still be some phonetic and typographical changes. The errors are purely typographical, due to imperfection on the software program, and do not reflect any compromise in the patient's medical care. Plan discussed with: Patient, Other (ABEL Van MD) DK RODRÍGUEZ MD Jan 25, 2025 22:15
[2025-01-26] VITALS (8 sets, daily range): BP systolic 131–145; BP diastolic 80–95; PULSE 65–78; RESP 16–18; TEMP 97.4–98.2; O2SAT 95–98
[2025-01-26 06:26] LABS: Cholesterol 195 mg/dL (< 200)
[2025-01-26 06:27] LABS: Triglycerides 224 mg/dL (< 150)
[2025-01-26 06:28] LABS: HDL Cholesterol 45 mg/dL (40-59)
[2025-01-26] MEDS: cefTRIAXone 1GM/50ML D5W 50 ML IV SCH (09:29)
[2025-01-26] MEDS: ENOXAPARIN SOD 40 MG/0.4 ML SYRINGE SC SCH (09:40)
--- NOTE | 2025-01-26 09:51 | DVHSR ---
APPROVED REPORT EXAM: Two-dimensional and M-mode echocardiogram with Doppler and color Doppler. Blood Pressure: 144/43 mmHg INDICATION Chest Pain RISK FACTORS Height: 5'9, Weight: 176 DIMENSIONS LVDd4.3 (3.8-5.7cm)LA (2D)3.9 (1.9-4.0cm)Aortic Root3.6 (2.0-3.7cm) LVDs2.7 (2.5-4.0cm)LA (MM) (1.9-4.0cm)Aortic Cusp Exc1.8 (1.5-2.0cm) EF (%) 60.0 (55-70%)Rt. Atrium3.7 (1.9-4.0cm)Asc. Aorta cm IVSd0.9 (0.7-1.1cm)RV (D)4.7 (1.8-2.4cm) PWd0.7 (0.7-1.1cm) Mitral Valve MitralMitral Stenosis E wave0.90m/sMV Mean GR.mmHg A wave0.81m/sMV Peak GR.mmHg E/A ratio1.12D MVAcm2 DECEL [id number] 1/2 [place] Aortic Valve Aortic ValveAortic Stenosis V11.10m/Ron Mean GR.7mmHg V21.59m/Ron Peak GR.10mmHg LVOT Diameter2.2 (1.8-2.4cm)Doppler AVA2.63cm2 Pulmonic Valve V20.82m/s Conclusion lvef 65% borderlineLVH normal rv function no severe valve abnormalities noted
[2025-01-26] MEDS: ERGOCALCIFEROL 50,000 UNIT(1.25MG) CAP PO ONE (15:11)
[2025-01-26] MEDS ORDERED: METF-370 PO (15:28)
[2025-01-26] MEDS ORDERED: GLIP5TAB21 PO (15:28)
[2025-01-26] MEDS ORDERED: AUG875T PO (15:28)
--- NOTE | 2025-01-26 15:29 | DVHDS2 ---
Discharge Summary Date of Admission Jan 24, 2025 at 21:35 Date of Discharge: Jan 26, 2025 Labs/Diagnostic Data: Laboratory Results Test 01/26/25 05:10 01/25/25 06:16 01/24/25 20:15 01/24/25 19:49 Triglycerides Level 224 mg/dL (< 150) Cholesterol Level 195 mg/dL (< 200) LDL Cholesterol 117 mg/dL (< 100) HDL Cholesterol 45 mg/dL (40-59) White Blood Count 9.9 10^3/uL (4.4-10.8) Red Blood Count 4.88 10^6/uL (4.5-5.90) Hemoglobin 15.3 g/dL (13.5-17.5) Hematocrit 44.2 % (41.0-53.0) Mean Corpuscular Volume 90.5 fL (80.0-100.0) Mean Corpuscular Hemoglobin 31.4 pg (28.0-32.0) Mean Corpuscular Hemoglobin Concent 34.7 g/dL (32.0-36.0) Red Cell Distribution Width 12.9 % (11.8-14.3) Platelet Count 187 10^3/uL (140-450) Mean Platelet Volume 8.4 fL (6.9-10.8) Neutrophils (%) (Auto) 86.6 % (37.0-80.0) Lymphocytes (%) (Auto) 8.8 % (10.0-50.0) Monocytes (%) (Auto) 4.1 % (0.0-12.0) Eosinophils (%) (Auto) 0.0 % (0.0-7.0) Basophils (%) (Auto) 0.5 % (0.0-2.0) Neutrophils # (Auto) 8.6 10 ^3/uL (1.6-8.6) Lymphocytes # (Auto) 0.9 10 ^3/uL (0.4-5.4) Monocytes # (Auto) 0.4 10 ^3/uL (0-1.3) Eosinophils # (Auto) 0 10 ^3/uL (0-0.8) Basophils # (Auto) 0 10 ^3/uL (0-0.2) Nucleated Red Blood Cells 0.0 % Sodium Level 134 mmol/L (136-145) Potassium Level 3.5 mmol/L (3.5-5.1) Chloride Level 99 mmol/L (98-107) Carbon Dioxide Level 21 mmol/L (20-31) Anion Gap 14 (5-15) Blood Urea Nitrogen 10 mg/dL (9-23) Creatinine 1.09 mg/dL (0.700-1.30) Glomerular Filtration Rate Calc 78 mL/min (>90) BUN/Creatinine Ratio 9.2 (10.0-20.0) Serum Glucose 145 mg/dL (74-106) Hemoglobin A1c 7.3 % A1C (<5.7) Calcium Level 9.5 mg/dL (8.7-10.4) Total Bilirubin 0.5 mg/dL (0.2-1.0) Aspartate Amino Transferase (AST) 24 U/L (13-40) Alanine Aminotransferase (ALT) 31 U/L (7-40) Alkaline Phosphatase 64 U/L (46-116) B-Type Natriuretic Peptide 30.26 pg/mL (0-100) Total Protein 6.8 g/dL (5.7-8.2) Albumin 4.1 g/dL (3.2-4.8) Vitamin B12 Level 235 pg/mL (211-911) Vitamin D 25-Hydroxy 19.4 ng/mL (30.0-100) Urine Color Colorless (Yellow) Urine Clarity Ex.turbid (Clear) Urine pH 5.5 (5.0-9.0) Urine Specific [place] 1.027 (1.001-1.035) Urine Protein Trace (Negative) Urine Ketones Negative (Negative) Urine Blood Negative /uL (Negative) Urine Nitrite Negative (Negative) Urine Bilirubin Negative (Negative) Urine Urobilinogen Normal mg/dL (Negative) Urine Leukocyte Esterase Negative /uL (Negative) Urine RBC 2 /hpf (0 - 3) Urine Microscopic WBC 1 /HPF (0-3) Urine Squamous Epithelial Cells None seen /hpf (<5) Urine Amorphous Crystals Few /hpf (None Seen) Urine Bacteria None seen /hpf (None Seen) Urine Mucus Few (None Seen) Urine Glucose 1+ mg/dL (Normal) Urine Opiates Screen Neg (NEGATIVE) Urine Fentanyl Screen Neg (NEGATIVE) Urine Barbiturates Screen Neg (NEGATIVE) Urine Phencyclidine Screen Neg (NEGATIVE) Urine Amphetamines Screen Neg (NEGATIVE) Urine Benzodiazepines Screen Neg (NEGATIVE) Urine Cocaine Screen Neg (NEGATIVE) Urine Cannabinoids Screen Neg (NEGATIVE) Magnesium Level 1.7 mg/dL (1.6-2.6) Direct Bilirubin < 0.1 mg/dL (<0.3) Lipase 40 U/L (12-53) Thyroid Stimulating Hormone (TSH) 1.42 uIU/mL (0.55-4.78) Acetaminophen Level < 2.0 UG/ML (10.0-20.0) Plasma/Serum Blood Alcohol < 3.0 mg/dL (<10) Test 01/24/25 19:01 01/24/25 17:49 Troponin I High Sensitivity 5 ng/L (</=54) D-Dimer, Quantitative 0.45 mg/L FEU (0.0-0.49) Other Laboratory Tests 01/25/25 06:16 Brief Hx & Hospital Course: 59-year-old male with a no significant past medical history initially presented to the hospital with a chest pain and left arm pain found to have reticular opacity of the right side as lung suspected pneumonia. Patient also has a ascending and transverse colon colitis. Patient also found to have right lung nodule which can be worked as an outpatient with a repeat CT chest or PET scan. Patient was found to have new onset of diabetes mellitus type 2 with a A1c 7.3. Patient was treated with the IV antibiotics cardiology was consulted. Patient was cleared by Cardiology as well as Pulmonary. Patient will be diabetic education and outpatient follow up with the PCP Pulmonary and Cardiology. Alcohol abstinence and tobacco cessation has been discussed with the patient who understand verbalized understanding and agreeable to plan. Condition at Discharge: Stable Final Diagnosis/Problems List 59-year-old male with a no significant past medical history initially presented to the hospital with a chest pain and left arm pain found to have 1. Chest pain rule out MD 2. Reticular opacities/Right-sided pneumonia rule out atypical infection 3. Ascending and transverse colon colitis 4. Right lung nodule 5. New onset of diabetes mellitus type 2 with a hemoglobin A1c 7.3 6. Chronic alcoholism 7. Chronic tobacco use disorder Discharge Disposition: Home SNF Discharge Will this Physician continue t: No Discharge Instruct/Medications Diet: Cardiac 2g Na,low cholest Diet comment: 1800 ADA diet Diabetic education Activity: No Restrictions, As Tolerated Follow Up/Referral: Follow up with the PCP in one week Follow up with Dr. Champagne in 1-2 weeks Follow up with the Cardiology Dr. Werner in 1 to two weeks Medications: As prescribed Scheduled Amoxicillin & Pot Clavulanate (Augmentin Tablet), 875 MG PO BID Glipizide (Glipizide), 1 TAB PO DAILY Metformin Hydrochloride (Metformin Hcl), 1 TAB PO BID Discharge Statement: "Patient was advised to return to the ER or call 911 if any headaches, dizziness, shortness of breath, chest pain, abdominal pain, bleeding, fevers, or worsening of medical condition. Patient was counseled about treatment plan, medications, possible side effects, patientverbalized understanding. All questions were answered to the best of my ability. This discharge took greater then 30 minutes in planning, reviewing documentation, counseling the patient, and discussing with other team members." ASSESSMENT ASSESSMENT Assessment 59-year-old male with a no significant past medical history initially presented to the hospital with a chest pain and left arm pain found to have 1. Chest pain rule out MD 2. Reticular opacities/Right-sided pneumonia rule out atypical infection 3. Ascending and transverse colon colitis 4. Right lung nodule 5. New onset of diabetes mellitus type 2 with a hemoglobin A1c 7.3 6. Chronic alcoholism 7. Chronic tobacco use disorder Date of Service: Jan 26, 2025 Billing Provider: YOLANDA DENNY MD Common Visit Codes: 92641-GYP/OBS DISCH DAY >30min YOLANDA DENNY MD Jan 26, 2025 15:29
--- NOTE | 2025-01-27 00:05 | DVHINCON2 ---
Date of service: Jan 25, [address] Denny Reason for Consultation Pneumonia, GGO and pulmonary nodule on imaging History of Present Illness A 59-year-old man with past medical history of GERD, nicotine dependence and ETOH use who presented to ED on 01/24/25 with a complaint of chest pain. Pt reported pain began around 8:00 p.m. on day prior to presentation when he was watching TV, sudden onset, left-sided, radiating to the left arm. Notes pain decreased with ibuprofen, no aggravating factors. Chest pain was associated with shortness of breath. He also had left calf pain which lasted about 30 minutes. Additionally noted crampy abdominal pain, sudden onset. Patient denied any fever, dysuria, palpitations, or other acute complaints. Initial lab workup revealed leukocytosis with WBC 11.5, D-dimer 0.45. sodium 133, blood sugar 91, urinalysis negative for UTI. EKG showed sinus tachycardia. UDS negative, urinalysis negative for UTI. Chest x-ray- revealed reticular nodular opacities in the right middle lung. CT scan of the abdomen and pelvis revealed small ground-glass nodule in the right upper lobe measuring 1 cm. Patient was admitted for further care and pulmonary consultation is requested for evaluation and management due to pneumonia, GGO and pulmonary nodule on imaging Review of Systems: 14-point review of systems negative unless otherwise noted above. Past Medical History GERD Past Surgical History Left knee surgery Medications: Reviewed. Allergies: No known drug allergies. Family History: Mom and dad w/ hypertension Social History: Former smoker - quit on 10/22/24. Has 20 pack-year smoking history. Hx of alcohol use. No illicit drug use. Family History: Diabetes mellitus G8 MOTHER G8 FATHER Allergies: Coded Allergies: NO KNOWN ALLERGIES (Unverified , 01/24/25) Home Meds Active Scripts Glipizide (Glipizide) 5 Mg Tab, 1 TAB PO DAILY, #60 TAB 3 Refills Prov:YOLANDA DENNY MD 01/26/25 Metformin Hydrochloride (Metformin Hcl) 500 Mg Tab, 1 TAB PO BID, #60 TAB 3 Refills Prov:YOLANDA DENNY MD 01/26/25 Amoxicillin & Pot Clavulanate (AUGMENTIN TABLET) 875 Mg Tb, 875 MG PO BID, #10 TAB Prov:YOLANDA DENNY MD 01/26/25 Current Medications Current Medications Medications (Trade) Dose Ordered Sig/Chris Route PRN Reason Start Time Stop Time Status Last Admin Ceftriaxone Sodium 50 ml @ 100 mls/hr DAILY@09 IV 01/26/25 09:00 01/26/25 17:19 DC 01/26/25 09:29 Enoxaparin Sodium (Lovenox) 40 mg DAILY SC 01/26/25 10:00 01/26/25 17:19 DC 01/26/25 09:40 Vital Signs Vital Signs Date Time Temp Pulse Resp B/P (MAP) Pulse Ox O2 Delivery O2 Flow Rate FiO2 01/26/25 17:00 97.7 73 18 139/91 (107) 98 97.7 01/26/25 07:56 Room Air* 0 21 Physical Exam Gen.: Patient lying in bed in no apparent distress. Breathing on room air. Head: Normocephalic, atraumatic. Eyes: EOMI/PERRLA. Ears: Normal hearing. Normal anatomy. Neck/trachea: Trachea midline, supple. Nose: Normal external anatomy. Mouth: Moist mucous membranes. Chest: Decreased air entry bilaterally. No wheezing or rhonchi. Cardiovascular: Positive S1, positive S2. Regular rate and rhythm. Abdomen: Positive bowel sounds in all 4 quadrants. Soft, non-tender, non- distended. : Deferred. Rectal: Deferred. Skin: Warm, dry. Intact. Extremities: 2+ radial pulses bilaterally. No lower extremity edema. Neuro: Awake, alert, oriented x3. No gross motor or sensory deficits. Cranial nerves II through XII intact. Gait not assessed. Labs/Diagnostic Data Labs Test 01/26/25 05:10 01/25/25 06:16 01/24/25 20:15 01/24/25 19:49 Range/Units Triglycerides Level 224 H < 150 mg/dL Cholesterol Level 195 < 200 mg/dL LDL Cholesterol 117 H < 100 mg/dL HDL Cholesterol 45 40-59 mg/dL White Blood Count 9.9 4.4-10.8 10^3/uL Red Blood Count 4.88 4.5-5.90 10^6/uL Hemoglobin 15.3 13.5-17.5 g/dL Hematocrit 44.2 41.0-53.0 % Mean Corpuscular Volume 90.5 80.0-100.0 fL Mean Corpuscular Hemoglobin 31.4 28.0-32.0 pg Mean Corpuscular Hemoglobin Concent 34.7 32.0-36.0 g/dL Red Cell Distribution Width 12.9 11.8-14.3 % Platelet Count 187 140-450 10^3/uL Mean Platelet Volume 8.4 6.9-10.8 fL Neutrophils (%) (Auto) 86.6 H 37.0-80.0 % Lymphocytes (%) (Auto) 8.8 L 10.0-50.0 % Monocytes (%) (Auto) 4.1 0.0-12.0 % Eosinophils (%) (Auto) 0.0 0.0-7.0 % Basophils (%) (Auto) 0.5 0.0-2.0 % Neutrophils # (Auto) 8.6 1.6-8.6 10 ^3/uL Lymphocytes # (Auto) 0.9 0.4-5.4 10 ^3/uL Monocytes # (Auto) 0.4 0-1.3 10 ^3/uL Eosinophils # (Auto) 0 0-0.8 10 ^3/uL Basophils # (Auto) 0 0-0.2 10 ^3/uL Nucleated Red Blood Cells 0.0 % Sodium Level 134 L 136-145 mmol/L Potassium Level 3.5 3.5-5.1 mmol/L Chloride Level 99 98-107 mmol/L Carbon Dioxide Level 21 20-31 mmol/L Anion Gap 14 5-15 Blood Urea Nitrogen 10 9-23 mg/dL Creatinine 1.09 0.700-1.30 mg/dL Glomerular Filtration Rate Calc 78 >90 mL/min BUN/Creatinine Ratio 9.2 L 10.0-20.0 Serum Glucose 145 H 74-106 mg/dL Hemoglobin A1c 7.3 H <5.7 % A1C Calcium Level 9.5 8.7-10.4 mg/dL Total Bilirubin 0.5 0.2-1.0 mg/dL Aspartate Amino Transferase (AST) 24 13-40 U/L Alanine Aminotransferase (ALT) 31 7-40 U/L Alkaline Phosphatase 64 46-116 U/L B-Type Natriuretic Peptide 30.26 0-100 pg/mL Total Protein 6.8 5.7-8.2 g/dL Albumin 4.1 3.2-4.8 g/dL Vitamin B12 Level 235 211-911 pg/mL Vitamin D 25-Hydroxy 19.4 L 30.0-100 ng/mL Urine Color Colorless Yellow Urine Clarity Ex.turbid Clear Urine pH 5.5 5.0-9.0 Urine Specific [place] 1.027 1.001-1.035 Urine Protein Trace H Negative Urine Ketones Negative Negative Urine Blood Negative Negative /uL Urine Nitrite Negative Negative Urine Bilirubin Negative Negative Urine Urobilinogen Normal Negative mg/dL Urine Leukocyte Esterase Negative Negative /uL Urine RBC 2 0 - 3 /hpf Urine Microscopic WBC 1 0-3 /HPF Urine Squamous Epithelial Cells None seen <5 /hpf Urine Amorphous Crystals Few None Seen /hpf Urine Bacteria None seen None Seen /hpf Urine Mucus Few None Seen Urine Glucose 1+ H Normal mg/dL Urine Opiates Screen Neg NEGATIVE Urine Fentanyl Screen Neg NEGATIVE Urine Barbiturates Screen Neg NEGATIVE Urine Phencyclidine Screen Neg NEGATIVE Urine Amphetamines Screen Neg NEGATIVE Urine Benzodiazepines Screen Neg NEGATIVE Urine Cocaine Screen Neg NEGATIVE Urine Cannabinoids Screen Neg NEGATIVE Magnesium Level 1.7 1.6-2.6 mg/dL Direct Bilirubin < 0.1 <0.3 mg/dL Lipase 40 12-53 U/L Thyroid Stimulating Hormone (TSH) 1.42 0.55-4.78 uIU/mL Acetaminophen Level < 2.0 L 10.0-20.0 UG/ML Plasma/Serum Blood Alcohol < 3.0 <10 mg/dL Test 01/24/25 19:01 01/24/25 17:49 Range/Units Troponin I High Sensitivity 5 </=54 ng/L D-Dimer, Quantitative 0.45 0.0-0.49 mg/L FEU Assessment Impression: Pneumonia Atelectasis GGO and pulmonary nodule on imaging Pulmonary nodule in Right upper lobe Hx of nicotine dependence Obesity BMI 31.7 Plan: CT chest report and images reviewed. Linear bibasilar scarring or atelectasis. Small ground-glass nodule in the right upper lobe measuring 9 mm Supplemental oxygen PRN Titrate to keep O2 sats above 92%. CT scan revealed small ground-glass nodule in the right upper lobe measuring [address] chest without contrast, vs PET CT as outpatient in 3 months per Fleischner criteria. Continue antibiotics Incentive spirometry Monitor renal function. Monitor electrolytes. Supplement as necessary. Monitor ins and outs. Diet and lifestyle modifications for weight reduction given obesity. GI/DVT prophylaxis. Prognosis: Poor given patient's multiple co-morbidities. Rest of plan per hospitalist and other consultants. Thank you Dr. Denny for allowing me to participate in this patient's care. Further recommendations will depend on the patient's clinical course. Please do not hesitate to contact me if you have any questions or concerns. This medical document was created using an electronic medical record system with [employer] dictation system. Although these documentations are being carefully reviewed, there may still be some phonetic and typographical changes. The errors are purely typographical, due to imperfection on the software program, and do not reflect any compromise in the patient's medical care. Plan discussed with: Patient, Other (RN/Dr. Denny) DK RODRÍGUEZ MD Jan 27, 2025 00:05
--- NOTE | 2025-01-27 00:52 | DVHPN2 ---
Progress Note - Dictate Date Seen: Jan 26, 2025 Medical Necessity Reason Pt with a Central, PICC or Fol: No Subjective Patient seen and examined at bedside. Breathing comfortably on room air. Overnight events reviewed vital signs Vital Sign Date Time Temp Pulse Resp B/P (MAP) Pulse Ox O2 Delivery O2 Flow Rate FiO2 01/26/25 17:00 97.7 73 18 139/91 (107) 98 97.7 01/26/25 07:56 Room Air* 0 21 Total Intake and Output 01/26/25 01/26/25 01/27/25 15:00 23:00 07:00 Intake Total 50 ml 245 ml Balance 50 ml 245 ml objective Gen.: Patient lying in bed in no apparent distress. Breathing on room air. Head: Normocephalic, atraumatic. Eyes: EOMI/PERRLA. Ears: Normal hearing. Normal anatomy. Neck/trachea: Trachea midline, supple. Nose: Normal external anatomy. Mouth: Moist mucous membranes. Chest: Decreased air entry bilaterally. No wheezing or rhonchi. Cardiovascular: Positive S1, positive S2. Regular rate and rhythm. Abdomen: Positive bowel sounds in all 4 quadrants. Soft, non-tender, non- distended. : Deferred. Rectal: Deferred. Skin: Warm, dry. Intact. Extremities: 2+ radial pulses bilaterally. No lower extremity edema. Neuro: Awake, alert, oriented x3. No gross motor or sensory deficits. Cranial nerves II through XII intact. Gait not assessed. laboratory and microbiology Laboratory Tests 01/25/25 06:16 Test 01/25/25 06:16 Range/Units Serum Glucose 145 H 74-106 mg/dL Assessment/Plan Impression: Pneumonia Atelectasis GGO and pulmonary nodule on imaging Pulmonary nodule in Right upper lobe Hx of nicotine dependence Obesity BMI 31.7 Events: Breathing on room air Supplemental oxygen PRN No new events. Complete antibiotics Incentive spirometry Followup CT chest vs. PET scan as outpatient in 3 months Recommend outpatient sleep study d/t risk factors for LADARIUS. Recommend outpatient PFTs due to possible COPD. Labs and imaging reviewed. Rest of plan as noted below. Plan: CT chest report and images reviewed. Linear bibasilar scarring or atelectasis. Small ground-glass nodule in the right upper lobe measuring 9 mm Supplemental oxygen PRN Titrate to keep O2 sats above 92%. CT scan revealed small ground-glass nodule in the right upper lobe measuring [address] chest without contrast, vs PET CT as outpatient in 3 months per Fleischner criteria. Continue antibiotics Incentive spirometry Monitor renal function. Monitor electrolytes. Supplement as necessary. Monitor ins and outs. Diet and lifestyle modifications for weight reduction given obesity. GI/DVT prophylaxis. Prognosis: Poor given patient's multiple co-morbidities. Rest of plan per hospitalist and other consultants. Thank you Dr. Zayas for allowing me to participate in this patient's care. Further recommendations will depend on the patient's clinical course. Please do not hesitate to contact me if you have any questions or concerns. This medical document was created using an electronic medical record system with [employer] computerized dictation system. Although these documentations are being carefully reviewed, there may still be some phonetic and typographical changes. The errors are purely typographical, due to imperfection on the software program, and do not reflect any compromise in the patient's medical care. Plan discussed with: Patient, Other (ABEL Van) DK RODRÍGUEZ MD Jan 27, 2025 00:52
== END 2025-01-26 17:00 | disposition home or self-care (01) | DRG 190 ==
LOC: ER 17:38 → OVERFLOW 21:35 → TELE-CENTR 23:40
PROVIDERS: ADMIT Internal Medicine; ATTEND Internal Medicine Pulmonary Disease
DX: I21.9 Acute myocardial infarction, unspecified (principal); J15.69 Pneumonia due to other Gram-negative bacteria; E11.9 Type 2 diabetes mellitus without complications; J15.9 Unspecified bacterial pneumonia; R16.0 Hepatomegaly, not elsewhere classified; K21.9 Gastro-esophageal reflux disease without esophagitis; A08.4 Viral intestinal infection, unspecified; K44.9 Diaphragmatic hernia without obstruction or gangrene; F10.20 Alcohol dependence, uncomplicated; E66.9 Obesity, unspecified; R91.1 Solitary pulmonary nodule; I20.0 Unstable angina; K76.0 Fatty (change of) liver, not elsewhere classified; F17.200 Nicotine dependence, unspecified, uncomplicated; N39.0 Urinary tract infection, site not specified; Z83.3 Family history of diabetes mellitus; Z82.49 Family history of ischemic heart disease and other diseases of the circulatory system; Z79.2 Long term (current) use of antibiotics; Z79.84 Long term (current) use of oral hypoglycemic drugs; Z79.899 Other long term (current) drug therapy; Y90.0 Blood alcohol level of less than 20 mg/100 ml; Z68.28 Body mass index [BMI] 28.0-28.9, adult
CPT/HCPCS: 36415; 71045; 71250; 74176; 80048; 80053; 80061; 80076; 80307; 80320; 80329; 81001; 82306; 82607; 82746; 83036; 83690; 83735; 83880; 84443; 84484; 85025; 85379; 93005; 93306; 96365; 96372; 96375; 99291; G0378; J2405; J2470; J3490